=== PATIENT | male | born 1995 | race Caucasian/White ===

== ENCOUNTER → 2017-09-17 | Outpatient (CLI) | payer BC ==
[~2017-09-17] VITALS: Ht 185.4 cm; Wt 74.8 kg
[~2017-09-17] MED LIST: CATHETER FLUSH 10 ML SYR IV PRN; GADOBUTROL 7.5 MMOL/7.5 ML (GADAVIST) VIAL IV ONE; GADOTERIDOL 279.3 MG/ML 10 ML (PROHANCE) SYR IV ONE; IOHEXOL 300 MG/ML 50 ML (OMNIPAQUE 300) VIAL IV ONE; LIDOCAINE 1% INJ 50 ML (XYLOCAINE) VIAL IJ ONE; LIDOCAINE 1% INJ 50 ML (XYLOCAINE) VIAL ONE
[2017-09-17 13:15] VITALS: BP 114/68
[2017-09-17 14:36] VITALS: BP 119/69
--- NOTE | 2017-09-17 15:37 | Diagnostic Imaging Report ---
INDICATION: Left elbow pain. Patient presents for fluoroscopically assisted left elbow gadolinium contrast injection prior to MRI. FINDINGS: Patient was brought to the procedure room and placed on the table in a prone position. The left elbow was flexed in 90 degree location. The external elbow was prepped and draped in usual sterile fashion. A small amount of 1% lidocaine was utilized for local anesthesia. A 22-gauge needle was advanced and placed with tip in the radiocapitellar space. Approximately 10 cc of solution of iodinated contrast, normal saline and gadolinium was injected under fluoroscopic observation. The needle was withdrawn, hemostasis was obtained. Patient tolerated the procedure well and was sent to MRI in satisfactory condition. Total of 1 minute 21 seconds of fluoroscopic time was utilized. IMPRESSION: Left elbow injection of gadolinium contrast solution, using fluoroscopy. Dictated by: Dictated on workstation # [id number]
--- NOTE | 2017-09-17 15:54 | Diagnostic Imaging Report ---
INDICATION: Left shoulder pain. TECHNIQUE/FINDINGS: The patient was brought to the procedure room and placed on the table in the supine position. The left shoulder was prepped and draped in the usual sterile fashion. A small amount of 1% lidocaine was utilized for local anesthesia. A 22-gauge needle was advanced into the left shoulder at the rotator interval. A 15 mL solution of iodinated contrast, normal saline, and gadolinium was injected under fluoroscopic observation. The needle was withdrawn and hemostasis was obtained. A total of 17 seconds of fluoroscopic time was utilized. The patient tolerated the procedure well and was sent to MRI in satisfactory condition. IMPRESSION: Successful left shoulder injection of a gadolinium contrast solution using fluoroscopy. Dictated by: Dictated on workstation # [id number]
--- NOTE | 2017-09-17 17:06 | Diagnostic Imaging Report ---
PROCEDURE: MRI left joint upper extremity with contrast. TECHNIQUE: Multiplanar, multisequence contrast-enhanced MRI of the left upper extremity was accomplished. INDICATION: Ulnar strain, cubital tunnel syndrome. FINDINGS: LIGAMENTS: The radial and ulnar collateral ligaments are intact. Incidental note is made of a triangular focus of soft tissue within the radiohumeral compartment with the appearance of the meniscus but likely represents a large synovial plica. TENDONS AND MUSCLES: The distal biceps, brachialis and triceps tendons are intact. The origin of the medial common flexor tendons is normal. The origin of the lateral common extensor tendons is normal. The musculature of the forearm and distal upper arm is normal in bulk. BONES AND CARTILAGE: No fracture. Articular cartilage of the elbow is preserved. No osteochondral lesion. SOFT TISSUES: No significant elbow joint effusion. No olecranon or bicipitoradial bursitis. The ulnar nerve is normal in configuration without mass effect in the cubital tunnel. Normal fat planes around the median and radial nerves at the level of the elbow. IMPRESSION: 1. Radial and ulnar collateral ligaments are intact. 2. No abnormal mass effect on the ulnar nerve within the cubital tunnel. 3. Large synovial plica with a meniscus-like configuration in the radiocapitellar joint. This could result in snapping sensation, and correlation with physical exam is advised. Dictated by: Dictated on workstation # [id number]
--- NOTE | 2017-09-17 17:16 | Diagnostic Imaging Report ---
PROCEDURE: MRI left joint upper extremity with contrast. TECHNIQUE: Multiplanar, multisequence MR imaging of the left shoulder was performed after direct intra-articular contrast administration into the glenohumeral joint. COMPARISON: None available. INDICATION: Shoulder pain. FINDINGS: Rotator cuff: No high-grade partial or full-thickness rotator cuff tear. Low-grade partial-thickness interstitial tearing of the infraspinatus. No rotator cuff muscle atrophy or denervation injury. Glenoid labrum: There is a nondisplaced superior labral tear oriented in anterior to posterior direction. This is located at the chondrolabral junction without complete chondrolabral separation. No paralabral cyst. Long head of biceps: Long head of biceps is normally positioned within the bicipital groove. The intracapsular segment is intact. Bones and cartilage: Humeral head is normal in morphology without fracture or focal osseous lesion. No glenohumeral chondromalacia. The acromioclavicular joint is normal in alignment without significant degenerative change. Soft tissues: No proliferative synovitis or loose bodies in the glenohumeral joint. No MRI findings to suggest adhesive capsulitis. No fluid or inflammatory like signal within the subacromial/subdeltoid space to indicate bursitis. IMPRESSION: 1. Nondisplaced SLAP tear. 2. Long head of biceps is intact without the superior labral tear propagating into the biceps anchor. 3. Low-grade partial-thickness interstitial tearing of the infraspinatus. Dictated by: Dictated on workstation # [id number]
== END ==
LOC: RAD 12:59
PROVIDERS: ATTEND Orthopaedic Surgery
DX: S56.812A Strain of other muscles, fascia and tendons at forearm level, left arm, initial encounter (principal); S43.432A Superior glenoid labrum lesion of left shoulder, initial encounter; S43.492A Other sprain of left shoulder joint, initial encounter; M75.112 Incomplete rotator cuff tear or rupture of left shoulder, not specified as traumatic; G56.22 Lesion of ulnar nerve, left upper limb
CPT/HCPCS: 23350; 24220; 73040; 73085; 73222